=== PATIENT | female | born 1965 | race Caucasian/White ===

== ENCOUNTER 2022-10-09 10:53 | Emergency (ER) | payer OTHER ==
[2022-10-09 11:00] VITALS: BP 155/93; PULSE 89; RESP 20; BMI 35.9
[2022-10-09] MEDS ORDERED: AMOX TR/POT CLAV 875MG/125MG TABLETS (FP) PO ONE (12:28)
[2022-10-09] MEDS ORDERED: ACETAMINOPHEN 500 MG TABLET (FP) PO ONE (12:32)
[2022-10-09] MEDS ORDERED: AMOX TR/POT CLAV 875MG/125MG TABLETS (FP) ONE (12:34)
[2022-10-09] MEDS ORDERED: ACETAMINOPHEN 500 MG TABLET (FP) ONE (12:35)
== END 2022-10-09 12:53 | disposition home or self-care (01) ==
LOC: JERFT 10:53
DX: K08.89 Other specified disorders of teeth and supporting structures (principal); R22.0 Localized swelling, mass and lump, head
CPT/HCPCS: 99283-25

== ENCOUNTER 2023-11-05 19:21 | Inpatient (IN) | payer OTHER ==
[2023-11-05] MEDS ORDERED: ACETAMINOPHEN INJECTION 100 ML IVPB ONE (20:01)
[2023-11-05] MEDS: ACETAMINOPHEN 1000 MG/100 ML BAG IVPB ONE (20:18)
[2023-11-05 20:22] LABS: BASO % 0.7 % (0-2.0); EOS % 2.3 % (0-4.5); HEMATOCRIT 40.5 % (32.4-45.2); HEMOGLOBIN 13.3 GM/dL (10.7-15.3); MCH 28.6 pg (25.7-33.7); MCHC 32.8 g/dl (32.0-36.0); MEAN CELL VOLUME 87.4 fl (80-96); MONO % 1.1 % (3.8-10.2); NEUT % 66.9 % (42.8-82.8); PLATELET COUNT 284 10^3/uL (134-434); RBC 4.63 M/mm3 (3.60-5.2); RDW 13.9 % (11.6-15.6); WHITE BLOOD COUNT 8.5 K/mm3 (4.0-10.0)
[2023-11-05] MEDS ORDERED: morphine SULFATE 4 MG/ML VIAL ONE (20:25)
[2023-11-05 20:32] LABS: INR 0.99 (0.83-1.09); PROTHROMBIN TIME (PATIENT) 11.5 SEC (9.7-13.0)
[2023-11-05 20:35] LABS: ACTIVATED PTT 29.1 SECONDS (25.2-36.5)
[2023-11-05] MEDS: morphine CARPU-JECT 4 MG/1 ML DISP.SYRIN IVPUSH ONE (20:35)
[2023-11-05 20:48] LABS: POTASSIUM 4.1 mmol/L (3.5-5.1)
[2023-11-05 20:52] LABS: ALBUMIN 3.8 g/dl (3.4-5.0); BLOOD UREA NITROGEN 23.1 mg/dL (7-18); CALCIUM 9.6 mg/dL (8.5-10.1)
[2023-11-05 20:55] LABS: CREATININE 1.3 mg/dL (0.55-1.3)
[2023-11-05 20:57] LABS: BILIRUBIN,TOTAL 0.7 mg/dL (0.2-1); TOT PROT 7.6 g/dl (6.4-8.2)
[2023-11-05] MEDS: SODIUM CHLORIDE 0.9% 500 ML INFUS.BAG IV ONE (22:11)
[2023-11-05 23:19] LABS: EPI CELLS 9 /uL (0-25.1); HYALINE CASTS 1 /uL (0-3.1); PH,URINE 5.5 (5.0-8.0); URINE APPEARANCE CLEAR; URINE BACTERIA >9,000 /uL (0-1359); URINE BILIRUBIN NEGATIVE (NEGATIVE); URINE COLOR YELLOW; URINE GLUCOSE (UA) NEGATIVE (NEGATIVE); URINE KETONE TRACE (NEGATIVE); URINE LEUK ESTERASE 1+ (NEGATIVE); URINE NITRITE POSITIVE (NEGATIVE); URINE PROTEIN TRACE (NEGATIVE); URINE RBC 28 /uL (0-23.9); URINE UROBILINOGEN 0.2 mg/dL (0.2-1.0); URINE WBC 139 /uL (0-25.8)
[2023-11-05] MEDS ORDERED: CEFTRIAXONE 1 GM/50 ML BAG ONE (23:54)
[2023-11-06] MEDS: CEFTRIAXONE 1,000 MG in DEXTROSE 5%-WATER - 50 ML IVPB ONE (00:06)
[2023-11-06] MEDS ORDERED: morphine SULFATE 4 MG/ML VIAL IVPUSH PRN ×2 (02:08→08:38)
[2023-11-06] MEDS ORDERED: ONDANSETRON 4 MG/2 ML VIAL IVPUSH PRN ×3 (02:08→08:38)
[2023-11-06] MEDS ORDERED: morphine SULFATE 4 MG/ML VIAL ONE (04:21)
[2023-11-06] MEDS: ACETAMINOPHEN 1000 MG/100 ML BAG IVPB PRN ×2 (04:34→12:12)
[2023-11-06 05:42] VITALS: BMI 41.5
[2023-11-06] MEDS: INSULIN ASPART SLIDING SCALE (NOVOLOG) 1 VIAL SQ SCH ×2 (06:37→12:23)
[2023-11-06] MEDS ORDERED: SODIUM CHLORIDE 1,000 ML IV SCH (07:00)
[2023-11-06] MEDS ORDERED: PROPOFOL 20 ML ONE (07:57)
[2023-11-06] MEDS ORDERED: MIDAZOLAM HCL 2 MG/2 ML SINGLE DOSE VIAL ONE (07:58)
[2023-11-06] MEDS ORDERED: FENTANYL CITRATE/PF 50 MCG/ML VIAL ONE ×3 (07:58→09:00)
[2023-11-06] MEDS ORDERED: LIDOCAINE HCL/PF 2% SDV 5ML VIAL ONE (07:59)
[2023-11-06] MEDS: GENTAMICIN SO4 80 MG/2 ML VIAL IVPB ONE (08:15)
[2023-11-06 08:16] LABS: HEMATOCRIT 38.4 % (32.4-45.2); HEMOGLOBIN 12.5 GM/dL (10.7-15.3); MCH 28.3 pg (25.7-33.7); MCHC 32.5 g/dl (32.0-36.0); MEAN CELL VOLUME 87.2 fl (80-96); MEAN PLT VOLUME 8.5 fl (7.5-11.1); PLATELET COUNT 273 10^3/uL (134-434); RBC 4.41 M/mm3 (3.60-5.2); RDW 14.2 % (11.6-15.6); WHITE BLOOD COUNT 16.1 K/mm3 (4.0-10.0)
[2023-11-06 08:37] LABS: POTASSIUM 3.8 mmol/L (3.5-5.1)
[2023-11-06 08:40] LABS: CALCIUM 8.9 mg/dL (8.5-10.1)
[2023-11-06 08:41] LABS: ALBUMIN 3.3 g/dl (3.4-5.0); BLOOD UREA NITROGEN 13.2 mg/dL (7-18); MAGNESIUM 2.2 mg/dL (1.8-2.4)
[2023-11-06 08:44] LABS: CREATININE 0.9 mg/dL (0.55-1.3); PHOSPHOROUS 3.3 mg/dL (2.5-4.9)
[2023-11-06 08:45] LABS: TOT PROT 6.8 g/dl (6.4-8.2)
[2023-11-06] MEDS ORDERED: LACTATED RINGERS SOLUTION 1,000 ML IV SCH (08:45)
[2023-11-06 08:46] LABS: BILIRUBIN,TOTAL 0.9 mg/dL (0.2-1)
[2023-11-06] MEDS: SODIUM CHLORIDE 1,000 ML IV SCH (09:56)
[2023-11-06] MEDS ORDERED: CEFTRIAXONE 1 GM in DEXTROSE 5%-WATER - 50 ML IVPB SCH (10:00)
[2023-11-06] MEDS: CEFTRIAXONE 1 GM in DEXTROSE 5%-WATER - 50 ML IVPB SCH (10:01)
[2023-11-06] MEDS: LACTATED RINGERS SOLUTION 1,000 ML/1,000 ML INFUS.BAG IV SCH (11:17)
[2023-11-06] MEDS ORDERED: INSULIN (NOVOLOG) ASPART 100 UNITS/ML 10ML VIAL ONE (17:00)
[2023-11-07] MEDS: ACETAMINOPHEN 500 MG TABLET (FP) PO ONE (06:24)
[2023-11-07] MEDS: TAMSULOSIN HCL 0.4 MG CAP PO SCH (08:35)
[2023-11-07] MEDS: ENOXAPARIN NA (PORCINE) 40 MG/0.4 ML DISP.SYRIN SQ SCH (09:10)
[2023-11-07 09:30] LABS: HEMATOCRIT 35.4 % (32.4-45.2); HEMOGLOBIN 11.9 GM/dL (10.7-15.3); MCH 28.9 pg (25.7-33.7); MCHC 33.5 g/dl (32.0-36.0); MEAN CELL VOLUME 86.1 fl (80-96); MEAN PLT VOLUME 8.5 fl (7.5-11.1); PLATELET COUNT 215 10^3/uL (134-434); RBC 4.11 M/mm3 (3.60-5.2); RDW 14.3 % (11.6-15.6); WHITE BLOOD COUNT 11.2 K/mm3 (4.0-10.0)
[2023-11-07] MEDS ORDERED: INSULIN (NOVOLOG) ASPART 100 UNITS/ML 10ML VIAL ONE ×3 (11:25→22:03)
[2023-11-07] MEDS: LACTATED RINGERS SOLUTION 1,000 ML/1,000 ML INFUS.BAG IV SCH (15:36)
[2023-11-08] MEDS: ACETAMINOPHEN 1000 MG/100 ML BAG IVPB ONE (02:44)
[2023-11-08] MEDS ORDERED: ACETAMINOPHEN 325 MG TABLET (FP) PO PRN (09:05)
[2023-11-08] MEDS: PIPERACILLIN/TAZOB 3.375 GM 3.375 GM in DEXTROSE 5%-WATER - 50 ML IVPB SCH (09:54)
[2023-11-08] MEDS: BACITRACIN ZINC 15 GM TUBE TOPICAL OINTMENT TP SCH (18:09)
[2023-11-09] MEDS ORDERED: INSULIN (NOVOLOG) ASPART 100 UNITS/ML 10ML VIAL ONE ×2 (06:12→11:32)
[2023-11-09 08:17] LABS: BASO % 0.4 % (0-2.0); EOS % 1.9 % (0-4.5); HEMOGLOBIN 12.6 GM/dL (10.7-15.3); LYMPH % 30.3 % (8-40); MCH 29.2 pg (25.7-33.7); MCHC 34.1 g/dl (32.0-36.0); MEAN CELL VOLUME 85.5 fl (80-96); MEAN PLT VOLUME 8.5 fl (7.5-11.1); MONO % 10.2 % (3.8-10.2); NEUT % 57.2 % (42.8-82.8); PLATELET COUNT 258 10^3/uL (134-434); RBC 4.32 M/mm3 (3.60-5.2); RDW 14.2 % (11.6-15.6); WHITE BLOOD COUNT 7.7 K/mm3 (4.0-10.0)
[2023-11-09 08:57] LABS: POTASSIUM 4.1 mmol/L (3.5-5.1)
[2023-11-09 08:59] LABS: CALCIUM 9.4 mg/dL (8.5-10.1)
[2023-11-09 09:00] LABS: ALBUMIN 3.1 g/dl (3.4-5.0); BLOOD UREA NITROGEN 12.2 mg/dL (7-18); MAGNESIUM 2.2 mg/dL (1.8-2.4)
[2023-11-09 09:05] LABS: BILIRUBIN,TOTAL 0.8 mg/dL (0.2-1)
[2023-11-09 12:14] VITALS: BP 122/70; PULSE 86; RESP 20; TEMP 98.2
== END 2023-11-09 13:07 | disposition home or self-care (01) | DRG 463 ==
LOC: JER 19:21 → JERBED 11-06 00:15 → J7W 11-06 04:55 → J8W 11-06 15:24
PROVIDERS: ADMIT Internal Medicine; ATTEND Nurse Practitioner Acute Care
PROC: 0T778DZ Dilation of Left Ureter with Intraluminal Device, Via Natural or Artificial Opening Endoscopic (ICD-10-PCS; principal; 2023-11-06 08:00)
PROC: BT04YZZ Plain Radiography of Kidneys, Ureters and Bladder using Other Contrast (ICD-10-PCS; 2023-11-06 08:00)
DX: N13.6 Pyonephrosis (principal); Z68.41 Body mass index [BMI] 40.0-44.9, adult; E66.01 Morbid (severe) obesity due to excess calories; R10.32 Left lower quadrant pain; E11.9 Type 2 diabetes mellitus without complications; R50.82 Postprocedural fever
CPT/HCPCS: 36415; 74177-TC; 76000-TC-FY; 80053; 81003; 82962; 83036; 83735; 84100; 85025; 85027; 85610; 85730; 86850; 86900; 86901; 87040; 87086; 87186; 93005; 93010; 94760; 99285-25; C2617; J0131; Q9967

== ENCOUNTER 2023-11-29 04:21 | Day surgery (SDC) | payer OTHER ==
[2023-11-26 09:17] VITALS: BMI 42.0
[2023-11-29] MEDS ORDERED: FENTANYL CITRATE/PF 50 MCG/ML VIAL ONE ×2 (07:47→09:08)
[2023-11-29] MEDS ORDERED: MIDAZOLAM HCL 2 MG/2 ML SINGLE DOSE VIAL ONE (07:47)
[2023-11-29] MEDS ORDERED: PROPOFOL 20 ML ONE (07:47)
[2023-11-29] MEDS ORDERED: ceFAZolin SODIUM 1 GM VIAL ONE (07:50)
[2023-11-29] MEDS ORDERED: SODIUM CHLORIDE 0.9% P/F 10 ML VIAL IJ ONE (07:50)
[2023-11-29] MEDS ORDERED: LIDOCAINE HCL/PF 2% SDV 5ML VIAL ONE ×2 (07:50→08:29)
[2023-11-29] MEDS: ceFAZolin SODIUM 1 GM VIAL IVPB ONE (08:07)
[2023-11-29] MEDS ORDERED: ONDANSETRON 4 MG/2 ML VIAL ONE ×2 (08:10→09:36)
[2023-11-29] MEDS ORDERED: KETOROLAC TROMETHAMINE 30 MG/1 ML VIAL ONE (08:29)
[2023-11-29] MEDS ORDERED: ONDANSETRON 4 MG/2 ML VIAL IVPUSH PRN (08:45)
[2023-11-29] MEDS ORDERED: PROMETHAZINE HCL 25 MG/1 ML VIAL IVPB PRN (08:45)
[2023-11-29] MEDS ORDERED: LACTATED RINGERS SOLUTION 1,000 ML IV SCH (08:45)
[2023-11-29] MEDS ORDERED: oxyCODONE HCL 5 MG TABLET PO PRN (08:45)
[2023-11-29] MEDS: ONDANSETRON 4 MG/2 ML VIAL IVPUSH ONE (09:38)
[2023-11-29] MEDS ORDERED: PROMETHAZINE HCL 25 MG/1 ML VIAL ONE (09:46)
[2023-11-29] MEDS: PROMETHAZINE HCL 25 MG/1 ML VIAL IVPB ONE (09:49)
[2023-11-29 12:21] VITALS: RESP 20
[2023-11-29] MEDS: ACETAMINOPHEN 500 MG TABLET (FP) ONE (14:20)
[2023-11-29 14:53] VITALS: BP 120/72; PULSE 75; TEMP 96.9
== END 2023-11-29 14:57 | disposition home or self-care (01) ==
LOC: JASU-SURG 04:21
PROVIDERS: ATTEND Urology
PROC: 0T778DZ Dilation of Left Ureter with Intraluminal Device, Via Natural or Artificial Opening Endoscopic (ICD-10-PCS; 2023-11-29)
PROC: 0TF78ZZ Fragmentation in Left Ureter, Via Natural or Artificial Opening Endoscopic (ICD-10-PCS; principal; 2023-11-29 08:00)
DX: N20.1 Calculus of ureter (principal)
CPT/HCPCS: 76000-TC-FY; 82962; 94760; C1758; C2617

== ENCOUNTER 2024-11-26 06:20 | Emergency (ER) | payer OTHER ==
[2024-11-26 06:28] VITALS: TEMP 99; BMI 39.8
[2024-11-26 07:08] LABS: ABSOLUTE IMMATURE GRANULOCYTES 0.03 x10^3/uL (0.0-0.031); BASOPHILS # 0.02 x10^3/uL (0.01-0.08); EOSINOPHIL % 0.9 % (0.7-5.8); EOSINOPHILS # 0.08 x10^3/uL (0.04-0.36); HEMATOCRIT 40.9 % (34.1-44.9); HEMOGLOBIN 13.3 g/dL (11.2-15.7); MCHC 32.5 g/dl (32.2-35.5); MEAN CELL VOLUME 87.8 fl (79.4-94.8); MONOCYTE # 0.67 x10^3/uL (0.24-0.86); MONOCYTE % 7.3 % (4.7-12.5); PLATELET COUNT 276 x10^3/uL (182-369); RDW 13.2 % (12.3-16.6)
[2024-11-26 07:19] LABS: POTASSIUM 4.2 mmol/L (3.5-5.1)
[2024-11-26 07:21] LABS: ALBUMIN 3.4 g/dl (3.4-5.0); BLOOD UREA NITROGEN 14.8 mg/dL (7-18); CALCIUM 9.3 mg/dL (8.5-10.1); MAGNESIUM 2.1 mg/dL (1.8-2.4)
[2024-11-26 07:24] LABS: CREATININE 0.9 mg/dL (0.55-1.3)
[2024-11-26 07:26] LABS: BILIRUBIN,TOTAL 0.6 mg/dL (0.2-1); TOT PROT 6.7 g/dl (6.4-8.2)
[2024-11-26] MEDS ORDERED: ACETAMINOPHEN INJECTION 100 ML ONE (07:35)
[2024-11-26] MEDS: ACETAMINOPHEN 1000 MG/100 ML BAG IVPB ONE (07:40)
[2024-11-26] MEDS: ASPIRIN 81 MG CHEWABLE TABLETS PO ONE (10:07)
[2024-11-26] MEDS ORDERED: ASPIRIN 81 MG CHEWABLE TABLETS ONE (10:07)
[2024-11-26 10:23] VITALS: BP 118/71; PULSE 76; RESP 16
== END 2024-11-26 10:23 | disposition home or self-care (01) ==
LOC: JER 06:20
PROC: 3E033NZ Introduction of Analgesics, Hypnotics, Sedatives into Peripheral Vein, Percutaneous Approach (ICD-10-PCS; principal; 2024-11-26)
DX: R07.2 Precordial pain (principal); R91.1 Solitary pulmonary nodule; R61 Generalized hyperhidrosis; I10 Essential (primary) hypertension
CPT/HCPCS: 0241U-QW; 36415; 71045-TC-FY; 71275-TC; 80053; 83735; 84484; 85025; 93005; 93010; 99285-25; J0131